=== PATIENT | male | born 1970 | race Caucasian/White ===

== ENCOUNTER 2021-04-22 05:45 | Emergency (ER) | payer SELFPAY | END 2021-04-22 05:53 | LOC: ED 05:47 | DX: S60.222A Contusion of left hand, initial encounter (principal); S00.01XA Abrasion of scalp, initial encounter; S09.90XA Unspecified injury of head, initial encounter; R55 Syncope and collapse; F17.200 Nicotine dependence, unspecified, uncomplicated; W22.8XXA Striking against or struck by other objects, initial encounter; Y93.89 Activity, other specified; Y92.89 Other specified places as the place of occurrence of the external cause; Y99.8 Other external cause status | CPT/HCPCS: 99281; 99283 ==